=== PATIENT | female | born 1985 | race Caucasian/White ===

== ENCOUNTER 2017-09-23 10:40 | Emergency (ER) | payer OTHER ==
[2017-09-23 11:00] LABS: URINE BLOOD (Dip) POC Trace-lysed (NEGATIVE); URINE KETONES (Dip) POC Trace (NEGATIVE); URINE LEUKOCYTE EST (Dip) POC 3+ (NEGATIVE); URINE NITRITE (Dip) POC Positive (NEGATIVE); URINE TOTAL PROTEIN POC 2+ (NEGATIVE)
[2017-09-23] MEDS: IBUPROFEN 600 MG TAB PO (11:04)
[2017-09-23] MEDS: CEPHALEXIN 500 MG CAP PO (11:13)
== END 2017-09-23 11:40 | disposition left against medical advice (07) ==
LOC: FTE 10:40
DX: N30.00 Acute cystitis without hematuria (principal)
CPT/HCPCS: 81003; 87086; 99283